=== PATIENT | female | born 1950 | race American Indian/Alaskan Native ===

== ENCOUNTER 2021-06-02 16:52 | Emergency (ER) | payer MEDICARE ==
[2021-06-02] MEDS ORDERED: OXYMETAZOLINE 0.05% NASAL SPRAY NS ONE (18:37)
[2021-06-02] MEDS ORDERED: SODIUM CHLORIDE 0.9% 1000 ML 1,000 ML IV ONE (18:48)
--- NOTE | 2021-06-02 18:50 | Event Note ---
ED Screening Note Date of service: 06/02/21 Time: 18:48 ED Screening Note: 71-year-old female with a past medical history of hypertension presents to the ED for evaluation of nosebleed. She states that she had the initial nosebleed at 3:00 this a.m. that lasted for about an hour then resolved. She states that around 1 PM today that her nose started to bleed again and nosebleed has been persistent since 1 PM. This initial assessment/diagnostic orders/clinical plan/treatment(s) is/are subject to change based on patients health status, clinical progression and re- assessment by fellow clinical providers in the ED. Further treatment and workup at subsequent clinical providers discretion. Patient/guardian urged not to elope from the ED as their condition may be serious if not clinically assessed and managed. Initial orders include:
--- NOTE | 2021-06-02 19:16 | Emergency Department Report ---
ED General Adult HPI - General Chief complaint: Medical Clearance Stated complaint: NOSEBLEED/HBP PUI?: No Time Seen by Provider: 06/02/21 19:02 Source: patient, RN notes reviewed Mode of arrival: Ambulatory Limitations: No Limitations - History of Present Illness Initial comments: The patient was evaluated in the emergency department for symptoms described in the history of present illness. He/she was evaluated in the context of the global COVID-19 pandemic, which necessitated consideration that the patient might be at risk for infection with the virus that causes COVID-19. Institutional protocols and algorithms that pertain to the evaluation of patients at risk for COVID-19 are in a state of rapid change based on inf ormation released by regulatory bodies including the CDC and federal and state organizations. These policies and algorithms were followed during the patient's care in the emergency department. Please note that these policies, procedures and recommendations changed on a rapid basis. The patient is a 71-year-old female who presents to the ER today with a complaint of painless nasal bleeding, predominantly in the right nostril. She does not take systemic anticoagulation. She denies trauma, picking her nose, cocaine use. She reports that she is very anxious. She reports that she feels like her heart rate is fast and her blood pressure is up secondary to her anxiety. In the emergency room, patient have Afrin administered into the nostrils, and had direct pressure applied to the nose, in addition to 2 x 2 pledget soaked with Afrin inserted into the nostril. This resolved her bleeding. After resolution of bleeding, tachycardia and high blood pressure resolved, and the patient reported complete resolution of symptoms. She denies rectal bleeding and additional bleeding -: Sudden Consistency: now resolved, other Improves with: other (As per history of present illness) Worsens with: none Associated Symptoms: denies other symptoms - Related Data Home Medications Medication Instructions Recorded Confirmed Last Taken Multivit with Calcium,Iron,Min 1 each PO DAILY 01/20/16 01/20/16 Unknown [Multiple Vitamins For Women] Olmesartan/Hydrochlorothiazide 1 tab PO DAILY 01/20/16 01/20/16 Unknown [Benicar HCT 40-25 mg] Previous Rx's Medication Instructions Recorded Last Taken Type Fluticasone [Flonase] 1 spray NS QDAY #1 bottle 06/02/21 Unknown Rx Allergies Allergy/AdvReac Type Severity Reaction Status Date / Time No Known Allergies Allergy Verified 06/02/21 18:29 ED Review of Systems ROS: Stated complaint: NOSEBLEED/HBP Other details as noted in HPI Constitutional: denies: fever Eyes: denies: eye discharge ENT: epistaxis Respiratory: denies: cough Cardiovascular: denies: chest pain Gastrointestinal: denies: abdominal pain, hematemesis, melena, hematochezia Psychiatric: anxiety ED Past Medical Hx - Past Medical History Hx Hypertension: Yes - Surgical History Additional Surgical History: tubal ligation; surgery to left radial 2013 - Social History Smoking Status: Never Smoker Substance Use Type: Alcohol - Medications Home Medications: Home Medications Medication Instructions Recorded Confirmed Last Taken Type Multivit with Calcium,Iron,Min 1 each PO DAILY 01/20/16 01/20/16 Unknown History [Multiple Vitamins For Women] Olmesartan/Hydrochlorothiazide 1 tab PO DAILY 01/20/16 01/20/16 Unknown History [Benicar HCT 40-25 mg] Fluticasone [Flonase] 1 spray NS QDAY #1 bottle 06/02/21 Unknown Rx ED Physical Exam - General Limitations: No Limitations General appearance: alert, anxious - Head Head exam: Present: atraumatic, normocephalic - Eye Eye exam: Present: normal appearance, EOMI. Absent: nystagmus - ENT ENT exam: Present: normal orophraynx, mucous membranes moist, normal external ear exam, other (There is scant blood noted in the posterior oropharynx. Blood clots noted in right nostril. Blood is not noted in the left nostril) - Neck Neck exam: Present: normal inspection, full ROM. Absent: tenderness, meningismus - Respiratory Respiratory exam: Present: normal lung sounds bilaterally. Absent: respiratory distress, wheezes, rales, rhonchi, stridor, decreased breath sounds - Cardiovascular Cardiovascular Exam: Present: normal rhythm, tachycardia, normal heart sounds. Absent: bradycardia, irregular rhythm, systolic murmur, diastolic murmur, rubs, gallop - GI/Abdominal GI/Abdominal exam: Present: soft. Absent: distended, tenderness, guarding, rebound, rigid, pulsatile mass - Extremities Exam Extremities exam: Present: normal inspection, full ROM, other (2+ pulses noted in the bilateral upper and lower extremities. There is no palpable cord. negative Homans sign. Muscular compartments are soft. The pelvis is stable.). Absent: pedal edema, calf tenderness - Back Exam Back exam: Present: normal inspection, full ROM. Absent: tenderness, CVA tenderness (R), CVA tenderness (L), paraspinal tenderness, vertebral tenderness - Neurological Exam Neurological exam: Present: alert, oriented X3, normal gait, other (No facial droop. Tongue midline. Extraocular movements intact bilaterally. Facial sensation intact to light touch in V1, V2, V3 distribution bilaterally. 5 and a 5 strength in 4 extremities. Sensation intact to light touch in 4 extremities.). Absent: motor sensory deficit - Psychiatric Psychiatric exam: Present: anxious - Skin Skin exam: Present: warm, dry, intact, normal color. Absent: rash ED Course Vital Signs 06/02/21 06/02/21 06/02/21 18:34 20:29 20:34 Temperature 97.6 F Pulse Rate 127 H 82 Respiratory 22 16 Rate Blood Pressure 185/96 Blood Pressure 124/88 [Right] O2 Sat by Pulse 99 98 Oximetry O2 Sat by Pulse 99 Oximetry [ Digit-Finger] 06/02/21 20:49 Temperature 98.4 F Pulse Rate 80 Respiratory 16 Rate Blood Pressure Blood Pressure 128/78 [Right] O2 Sat by Pulse 99 Oximetry O2 Sat by Pulse Oximetry [ Digit-Finger] - Procedure Description Procedures done: 2 x 2 pledget is soaked in Afrin. The pledget is then wrapped tightly around its long axis, and gently inserted into the right nostril and direct visualization. Then, a tongue depressor device held together with silk tape is placed on the patient's bridge of the nose, and the patient holds gentle pressure for about 20 minutes. Subsequently, the pledget is removed, no bleeding is appreciated, and the patient endorses resolution of symptoms - Pulse Oximetry Interpretation Digit-Finger Initial Pulse Oximetry Readin O2 Sat by Pulse Oximetry: 99 Actions Taken: none ED Medical Decision Making - Lab Data Vital Signs 06/02/21 18:34 Temperature 97.6 F Pulse Rate 127 H Respiratory 22 Rate Blood Pressure 185/96 O2 Sat by Pulse 99 Oximetry Vital Signs 06/02/21 06/02/21 06/02/21 18:34 20:29 20:32 Temperature 97.6 F Pulse Rate 127 H 82 Respiratory 22 16 Rate Blood Pressure 185/96 Blood Pressure 124/88 [Right] O2 Sat by Pulse 99 98 Oximetry O2 Sat by Pulse 99 Oximetry [ Digit-Finger] - Medical Decision Making Differential diagnosis, including but not limited to: Epistaxis, hypertension Assessment and plan: 71-year-old female presenting with nasal bleeding which is nontraumatic, in the right nostril, which we were able to resolve with direct pressure, soaked pledgets with Afrin, and conservative measures. Patient is reassessed multiple times. At the moment, heart rate is 90 bpm, and blood pressure is 123/75 mmHg. She is on her cellular phone, in no acute distress, and reports complete resolution of symptoms. Patient denies cocaine use, and she also denies trauma, nasal picking, and systemic anticoagulation. Patient is observed in this department for hours without clinical decompensation. She is counseled on the natural history of nasal bleeding. She has articulated understanding. Return precautions reviewed. Saturating 100% on room air. She does have a history of elevated blood pressure/hypertension for which she takes chronic antihypertensive therapy. She recently got her medications refilled and will follow-up with her primary care doctor Critical care attestation.: If time is entered above; I have spent that time in minutes in the direct care of this critically ill patient, excluding procedure time. 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 Nasal bleeding may recur, if it does, apply 1 to 2 sprays of Afrin into the affected nostril, and hold direct pressure with fingertips and tongue blade device as directed. Continue current outpatient medications and minimize consumption and utilization of Motrin, ibuprofen, Naprosyn, Aleve. Please return to the emergency room right away with new pain, worsened pain, migration of pain, projectile vomiting, change in mental status, confusion, inability tolerate liquid feeds, new, worsened or different symptoms not present on the initial emergency room evaluation Patient may use the Flonase prescription as directed indefinitely. Afrin may be used once every 12 hours, for no longer than 3 days consecutively. Use Afrin only for difficult to control nasal bleeding, or severe nasal congestion. Afrin may not be used for more than 3 days consecutively. Prescriptions: Fluticasone [Flonase] 1 spray NS QDAY #1 bottle Referrals: OMKAR HAYWARD MD [Staff Physician] - 3-5 Days [facility] [Provider Group] - 3-5 Days Forms: Work/School Release Form(ED)
[2021-06-02 20:56] VITALS: BP 128/78
== END 2021-06-02 21:13 | disposition home or self-care (01) ==
LOC: ED 16:52
DX: R04.0 Epistaxis (principal); R03.0 Elevated blood-pressure reading, without diagnosis of hypertension; I10 Essential (primary) hypertension; Z72.89 Other problems related to lifestyle; Z98.51 Tubal ligation status; Z79.899 Other long term (current) drug therapy
CPT/HCPCS: 99282